=== PATIENT | female | born 1970 | race Hispanic/Latino ===

== ENCOUNTER 2019-10-17 20:55 | Emergency (ER) | payer SELFPAY ==
[~2019-10-17] VITALS: Ht 157.5 cm; Wt 68.0 kg
[~2019-10-17 20:55] MED LIST: ALBUTEROL SULF8.5 GM INH; AZITHROMYCIN250 MG ORAL; NKM; PROMETHAZINE-C118 M1 ORAL
[2019-10-17 21:00] VITALS: BP 132/80
[2019-10-17] MEDS ORDERED: Ketorolac 30mg Inj IV ONE (21:00)
[2019-10-17] MEDS ORDERED: oxyCODONE HCL/Acetaminophen 5/325mg PO ONE (21:00)
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
[2019-10-17] MEDS ORDERED: fentaNYL 100 mcg/2 mL IV ONE (21:30)
--- NOTE | 2019-10-17 21:30 | NUR ---
GLEN is here-patient is in X-ray department-GLEN spoke with .
[2019-10-17 21:39] VITALS: BP 135/85
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
--- NOTE | 2019-10-17 21:55 | NUR ---
ED Nurse Note: Pt returned from imaging, remains in severe pain, medicated as ordered and replaced on monitoring, inna lmonitor for med effectiveness or any changes.
[2019-10-17] MEDS ORDERED: GUAIFENESIN-CO118 M1 ORAL (22:49)
[2019-10-17] MEDS ORDERED: CHILDREN'S160 MG/56 ORAL (22:49)
[2019-10-17] MEDS ORDERED: IBUPROFEN100 MG/5 M ORAL (22:49)
[2019-10-17 23:39] VITALS: BP 132/80
== END 2019-10-17 23:00 | disposition home or self-care (01) ==
LOC: EDBD 20:55 → EMR 21:20
DX: S40.011A Contusion of right shoulder, initial encounter (principal); S70.01XA Contusion of right hip, initial encounter; S20.219A Contusion of unspecified front wall of thorax, initial encounter; S06.0X1A Concussion with loss of consciousness of 30 minutes or less, initial encounter; S01.502A Unspecified open wound of oral cavity, initial encounter; V43.62XA Car passenger injured in collision with other type car in traffic accident, initial encounter; Y92.410 Unspecified street and highway as the place of occurrence of the external cause
CPT/HCPCS: 71045; 71100; 73000; 73030; 73502; 93005; 96374; 96375; 99284; J1885; J2405; J3010

== ENCOUNTER 2019-10-21 13:51 | Emergency (ER) | payer SELFPAY ==
[~2019-10-21] VITALS: Ht 165.1 cm; Wt 72.6 kg
[~2019-10-21 13:51] MED LIST changes: +CHILDREN'S160 MG/56 ORAL; +GUAIFENESIN-CO118 M1 ORAL; +IBUPROFEN100 MG/5 M ORAL
[2019-10-21 14:07] VITALS: BP 151/73
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
[2019-10-21] MEDS ORDERED: HYDROcodone/Acetamin 7.5/325 tab ORAL ONE (14:45)
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
[2019-10-21] MEDS ORDERED: FLEET ENEMA133 ML RECTAL (16:03)
[2019-10-21] MEDS ORDERED: DOCUSATE SODIU100 MG ORAL (16:03)
[2019-10-21] MEDS ORDERED: MIRALAX17 G2 ORAL (16:03)
[2019-10-21 16:11] VITALS: BP 135/76
== END 2019-10-21 16:11 | disposition home or self-care (01) ==
LOC: EMR 14:43
DX: R07.89 Other chest pain (principal); K56.41 Fecal impaction; J45.909 Unspecified asthma, uncomplicated; V43.92XD Unspecified car occupant injured in collision with other type car in traffic accident, subsequent encounter
CPT/HCPCS: 71250; 74176; 93005; 99284